=== PATIENT | female | born 1980 | race Hispanic/Latino ===

== ENCOUNTER → 2018-01-22 | Outpatient (CLI) | payer OTHER ==
[~2018-01-22] MED LIST: DIATRIZOATE MEGL/DIATRIZOA SOD 30 ML BTL PO ONE; IBUPROFEN400 MG PO; IOPAMIDOL 370 MG/ML 200 ML INFUS..BTL INJ ONE; SODIUM CHLORIDE 0.9% 50ML 50 ML ONE
--- NOTE | 2018-01-22 11:25 | Diagnostic Imaging Report ---
PROCEDURE: CT ABDOMEN AND PELVIS WITH CONTRAST TECHNIQUE: The abdomen and pelvis were scanned utilizing a multidetector helical scanner from the diaphragm to the lesser trochanter after the IV administration of 100 cc of Isovue 370 and the oral administration of Gastrografin. Coronal and sagittal multiplanar reformations were obtained. COMPARISON: None. INDICATIONS: HERNIA FINDINGS: LOWER THORAX: Normal. HEPATOBILIARY: No focal hepatic lesion or intrahepatic biliary ductal dilatation. The gallbladder has been removed. SPLEEN: No splenomegaly. Small splenule in the hilum. PANCREAS: No focal masses or ductal dilatation. ADRENALS: No adrenal nodules. KIDNEYS/URETERS: No hydronephrosis, stones, or solid mass lesions. PELVIC ORGANS/BLADDER: Urinary bladder is incompletely distended. The uterus is not identified and has presumably been removed. Left ovarian corpus luteum cyst. No right adnexal mass. PERITONEUM / RETROPERITONEUM: No ascites. No pneumoperitoneum. LYMPH NODES: No pelvic sidewall, retroperitoneal, or mesenteric lymphadenopathy. VESSELS: The abdominal aorta, major branch vessels, and iliac arterial systems are well visualized and patent, without aneurysmal dilatation. GI TRACT: The large bowel shows no distention or wall thickening. Gas and fecal material are noted throughout. The appendix is not definitively identified and may have been removed. No right lower quadrant inflammatory change. No small bowel dilatation to suggest obstruction. BONES AND SOFT TISSUES: Postsurgical changes of the anterior abdominal wall with mild rectus diastases. Recurrent umbilical hernia sac measures 3.5 cm transverse by 2.9 cm AP by 3.4 cm craniocaudal and contains inflamed omental fat. No additional focal soft tissue abnormalities. No osseous destructive lesions. Bone islands in the left femoral head and left hemipelvis. IMPRESSION: Postsurgical changes of the anterior abdominal wall with a recurrent 3.5 cm hernia in the region of the umbilicus, containing inflamed omental fat. No small bowel herniation or obstruction. Dictated by: Cristhian Barton M.D. on 01/22/2018 at 11:26 Electronically approved by: Cristhian Barton M.D. on 01/22/2018 at 11:26
== END ==
LOC: CT 09:23
PROVIDERS: ATTEND Surgery
DX: K43.2 Incisional hernia without obstruction or gangrene (principal)
CPT/HCPCS: 74177; Q9967

== ENCOUNTER 2018-03-08 05:39 | Inpatient (IN) | payer OTHER ==
[2018-02-26 11:08] LABS: BASOPHILS # (AUTO) 0.1 (0.0-0.1); BASOPHILS % 0.5 % (0.0-1.0); EOSINOPHILS # (AUTO) 0.1 (0.0-0.4); EOSINOPHILS % 1.3 % (0.0-6.0); HEMATOCRIT 39.9 % (34.2-44.1); HEMOGLOBIN 13.2 g/dL (12.0-16.0); LYMPHOCYTES # (AUTO) 2.8 (1.0-3.2); LYMPHOCYTES % 27.4 % (18.0-39.1); MEAN CORPUSCULAR HEMOGLOBIN 28.6 pg (28-32); MEAN CORPUSCULAR HGB CONC 33.1 g/dL (31-35); MEAN CORPUSCULAR VOLUME 86.4 fL (81-99); MONOCYTES # (AUTO) 0.5 (0.2-0.8); MONOCYTES % 4.7 % (4.4-11.3); NEUTROPHILS # (AUTO) 6.8 (2.1-6.9); NEUTROPHILS % 65.9 % (38.7-80.0); PLATELET COUNT 234 x10e3/uL (140-360); RED BLOOD COUNT 4.62 x10e6/uL (3.6-5.1)
[~2018-03-08] VITALS: Ht 157.5 cm; Wt 90.7 kg
[~2018-03-08 05:39] MED LIST changes: -DIATRIZOATE MEGL/DIATRIZOA SOD 30 ML BTL PO ONE; -IOPAMIDOL 370 MG/ML 200 ML INFUS..BTL INJ ONE; -SODIUM CHLORIDE 0.9% 50ML 50 ML ONE
--- OUTSIDE RECORDS SUMMARY | 2018-03-08 05:42 | XMS REPORT ---
Author Author [facility] Address Unknown Phone Unavailable Care Team Providers [employer] Name Role Phone DUDLEY MOON Unavailable Unavailable Problems This patient has no known problems. Allergies, Adverse Reactions, Alerts This patient has no known allergies or adverse reactions. Medications This patient has no known medications. Results Test Description Test Time Test Comments Text Results Atomic Results Result Comments CT ABDOMEN/PELVIS W [place] [address] Patient Name: DIEGO DA SILVA MR #: [id number] : 1980 Age/Sex: 37/F Req # : [id number] Adm Physician: Ordered by: DUDLEY MOON MD Report #: [id number] Location: CT Room/Bed: Procedure: 0420- 0011 CT/CT ABDOMEN/PELVIS W Exam Date: 01/22/18 Exam Time: 1040 REPORT STATUS: Signed PROCEDURE: CT ABDOMEN AND PELVIS WITH CONTRAST TECHNIQUE: The abdomen and pelvis were scanned utilizing a multidetector helical scanner from the diaphragm to the lesser trochanter after the IV administration of 100 cc of Isovue 370 and the oral administration of Gastrografin. Coronal and sagittal multiplanar reformations were obtained. COMPARISON: None. INDICATIONS: HERNIA FINDINGS: LOWER THORAX: Normal. HEPATOBILIARY: No focal hepatic lesion or intrahepatic biliary ductal dilatation. The gallbladder has been removed. SPLEEN: No splenomegaly. Small splenule in the hilum. PANCREAS: No focal masses or ductal dilatation. ADRENALS: No adrenal nodules. KIDNEYS/URETERS: No hydronephrosis, stones, or solid mass lesions. PELVIC ORGANS/BLADDER: Urinary bladder is incompletely distended. The uterus is not identified and has presumably been removed. Left ovarian corpus luteum cyst. No right adnexal mass. PERITONEUM / RETROPERITONEUM: No ascites. No pneumoperitoneum. LYMPH NODES: No pelvic sidewall, retroperitoneal , or mesenteric lymphadenopathy. VESSELS: The abdominal aorta, major branch vessels, and iliac arterial systems are well visualized and patent, without aneurysmal dilatation. GI TRACT: The large bowel shows no distention or wall thickening. Gas and fecal material are noted throughout. The appendix is not definitively identified and may have been removed. No right lower quadrant inflammatory change. No small bowel dilatation to suggest obstruction. BONES AND SOFT TISSUES: Postsurgical changes of the anterior abdominal wall with mild rectus diastases. Recurrent umbilical hernia sac measures 3.5 cm transverse by 2.9 cm AP by 3.4 cm craniocaudal and contains inflamed omental fat. No additional focal soft tissue abnormalities. No osseous destructive lesions. Bone islands in the left femoral head and left hemipelvis. IMPRESSION: Postsurgical changes of the anterior abdominal wall with a recurrent 3.5 cm hernia in the region of the umbilicus, containing inflamed omental fat. No small bowel herniation or obstruction. Dictated by: Caesar Root M.D. on 01/22/2018 at 11:26 Electronically approved by: Caesar Root M.D. on 01/22/2018 at 11 :26 Dictated By: CAESAR ROOT MD [id number] Transcribed By: JANETT on 01/22/18 1126 COPY TO: DUDLEY MOON MD
[2018-03-08] MEDS ORDERED: BUPIVACAINE 0.25%/EPI 30ML SDV INJ ONE (08:29)
[2018-03-08] MEDS ORDERED: ACETAMINOPHEN 1000 MG/100 ML IV PRN (11:15)
[2018-03-08] MEDS ORDERED: HYDROMORPHONE 1MG/1ML INJ IV PRN (11:15)
[2018-03-08] MEDS ORDERED: FENTANYL CITRATE/PF 100MCG/2 ML INJ ONE ×2 (11:31→18:41)
[2018-03-08 13:48] VITALS: BP 102/57
[2018-03-08] MEDS ORDERED: CEFAZOLIN SOD 1 GM/NS 50ML 50 ML IV SCH (14:00)
[2018-03-08 14:20] VITALS: BP 102/57
[2018-03-08] MEDS: PANTOPRAZOLE 40 MG 10ML VIAL IV SCH (14:30)
[2018-03-08] MEDS: DEXTROSE 5%/LACTATED RINGERS 1,000 ML IV SCH (14:30)
--- NOTE | 2018-03-08 14:31 | Operative Report ---
DATE OF PROCEDURE: March 08, 2018 PREOPERATIVE DIAGNOSIS: Multiple recurrent ventral hernia. POSTOPERATIVE DIAGNOSIS: Multiple recurrent ventral hernia. OPERATION PERFORMED: Repair of multiple recurrent ventral hernia with mesh. STAGE SETTINGS PAINTER: Elvira ECHEVERRIA. ANESTHESIA: General. COMPLICATIONS: None. ESTIMATED BLOOD LOSS: Minimal. DESCRIPTION OF PROCEDURE: With the patient lying in bed in the supine position under good general endotracheal anesthesia, the abdomen was prepped with Betadine solution and draped in the usual manner. A midline incision was made along the old upper abdominal scar and around the umbilicus, taken down through the subcutaneous tissue, and immediately multiple hernia sacs were encountered along the subumbilical, periumbilical and epigastric region. The fascia was then dissected all the way around, with normal fascia all the way around. The umbilicus was then detached from the hernia sac. The different hernia defects were then opened, and all of the adhesions and omentum were dissected and reduced back to the intra-abdominal cavity. A couple of the hernia sacs were joined together into one larger defect, and all of the adhesions were slowly and carefully taken down. The patient apparently had what appeared to be at least 2 different pieces of mesh that had been placed intraabdominally, and these were removed. Once this was done and the whole area was cleared off of any adhesions, a 12 x 15 piece of Physiomesh was then placed into the intraabdominal cavity and anchored in all 6 spots using number 1 Prolene, and then using the tacker, the rest of the mesh was anchored all the way around. Once this was done, this gave us a satisfactory repair. There was no tension on the fascia. The fascial defects were then closed with interrupted sutures of 0 Ethibond and further oversewn with a number 1 PDS. This gave us a satisfactory closure without any tension. The whole area was thoroughly irrigated. Perfect hemostasis was ascertained. The fascia was then infiltrated with 1/4 percent Marcaine solution. The umbilicus was then tacked back down to the midline fascia with 3-0 Vicryl. The subcutaneous tissue was approximated with 2-0 Vicryl, and the skin was closed with clips. A dressing was applied. The sponge, lap and needle count was correct. The patient tolerated the procedure well and returned to the recovery room in stable condition. Job#: [id number]
[2018-03-08] MEDS: HYDROCODONE/APAP 7.5MG-325MG 1 EA TAB PO PRN (14:45)
[2018-03-08] MEDS: HYDROMORPHONE 2MG/ML INJ IV PRN (15:16)
[2018-03-08] MEDS ORDERED: PROMETHAZINE 12.5MG/ NACL 0.9% 12.5 MG/50 ML BAG IV PRN (16:00)
[2018-03-08 16:28] VITALS: BP 130/59
[2018-03-08] MEDS: CEFAZOLIN SOD 1 GM VIAL IV SCH (16:52)
[2018-03-08] MEDS ORDERED: CEFAZOLIN SOD 1 GM VIAL ONE (17:48)
[2018-03-08] MEDS ORDERED: PROPOFOL IV EMULSION 10 MG/ML 20 ML VIAL ONE (17:48)
[2018-03-08] MEDS ORDERED: KETOROLAC TROMETHAMINE 30 MG/ML VIAL ONE (17:48)
[2018-03-08] MEDS ORDERED: SEVOFLURANE INHAL SOLN 250 ML PEN BTL ONE (17:48)
[2018-03-08] MEDS ORDERED: DEXAMETHASONE SOD PHOS INJ 4 MG/ML VIAL ONE (17:48)
[2018-03-08] MEDS ORDERED: LIDOCAINE HCL 2% LOCAL INJ 5 ML SDV VIAL INJ ONE (17:48)
[2018-03-08] MEDS ORDERED: ONDANSETRON HCL INJ 2 MG/ML VIAL ONE (17:48)
[2018-03-08] MEDS ORDERED: ROCURONIUM BROMIDE 10 MG/ML 5ML VIAL ONE (17:48)
[2018-03-08] MEDS ORDERED: ACETAMINOPHEN 1000 MG/100 ML IV ONE (17:48)
[2018-03-08] MEDS ORDERED: MIDAZOLAM HCL 2 MG/2 ML VIAL ONE (18:41)
[2018-03-08 20:00] VITALS: BP 95/54
[2018-03-08 20:08] VITALS: BP 95/54
[2018-03-09] VITALS (9 sets, daily range): BP systolic 99–111; BP diastolic 53–59
[2018-03-09] MEDS: HYDROMORPHONE 2MG/ML INJ IV PRN ×5 (00:20→20:58)
[2018-03-09] MEDS: CEFAZOLIN SOD 1 GM VIAL IV SCH (00:25)
[2018-03-09] MEDS: DEXTROSE 5%/LACTATED RINGERS 1,000 ML IV SCH ×3 (00:25→17:20)
[2018-03-09 05:51] LABS: BASOPHILS % 0.1 % (0.0-1.0); EOSINOPHILS % 0.1 % (0.0-6.0); HEMOGLOBIN 10.8 g/dL (12.0-16.0); LYMPHOCYTES # (AUTO) 2.3 (1.0-3.2); LYMPHOCYTES % 12.6 % (18.0-39.1); MEAN CORPUSCULAR HEMOGLOBIN 28.8 pg (28-32); MEAN CORPUSCULAR HGB CONC 32.7 g/dL (31-35); MONOCYTES # (AUTO) 0.8 (0.2-0.8); MONOCYTES % 4.5 % (4.4-11.3); NEUTROPHILS # (AUTO) 14.7 (2.1-6.9); NEUTROPHILS % 82.4 % (38.7-80.0); PLATELET COUNT 225 x10e3/uL (140-360); RED BLOOD COUNT 3.75 x10e6/uL (3.6-5.1); RED CELL DISTRIBUTION WIDTH 13.6 % (11.7-14.4)
[2018-03-09 06:09] LABS: ANION GAP 11.2 mmol/L (8-16); BLOOD UREA NITROGEN 7 mg/dL (7-26); BUN/CREATININE RATIO 10 (6-25); CARBON DIOXIDE 27 mmol/L (22-29); CHLORIDE 106 mmol/L (98-107); CREATININE, SERUM 0.71 mg/dL (0.57-1.11); EST GLOMERULAR FILTRATION RATE > 60 ML/MIN (60-); GLUCOSE 119 mg/dL (74-118); POTASSIUM 4.2 mmol/L (3.5-5.1); SODIUM 140 mmol/L (136-145)
[2018-03-09] MEDS: PANTOPRAZOLE 40 MG 10ML VIAL IV SCH (12:31)
[2018-03-09] MEDS: HYDROCODONE/APAP 7.5MG-325MG 1 EA TAB PO PRN (16:35)
[2018-03-10] VITALS (8 sets, daily range): BP systolic 101–135; BP diastolic 56–60
[2018-03-10] MEDS: HYDROMORPHONE 2MG/ML INJ IV PRN ×5 (02:50→22:14)
[2018-03-10] MEDS: PANTOPRAZOLE 40 MG 10ML VIAL IV SCH (11:10)
[2018-03-10] MEDS: HYDROCODONE/APAP 7.5MG-325MG 1 EA TAB PO PRN (11:49)
[2018-03-10] MEDS: DEXTROSE 5%/LACTATED RINGERS 1,000 ML IV SCH (16:15)
[2018-03-10] MEDS ORDERED: MAGNESIUM HYDROXIDE 30 ML UDC PO ONE (19:00)
[2018-03-10] MEDS: BISACODYL 10 MG SUPP PR SCH (21:56)
[2018-03-11] VITALS: BP 121/64
[2018-03-11 04:00] VITALS: BP 116/62
[2018-03-11] MEDS: DEXTROSE 5%/LACTATED RINGERS 1,000 ML IV SCH (05:02)
[2018-03-11 07:05] VITALS: BP 127/58
[2018-03-11 07:20] VITALS: BP 127/68
[2018-03-11] MEDS: BISACODYL 10 MG SUPP PR SCH (08:00)
[2018-03-11] MEDS: HYDROMORPHONE 2MG/ML INJ IV PRN ×2 (08:05→11:35)
[2018-03-11] MEDS: PANTOPRAZOLE 40 MG 10ML VIAL IV SCH (11:24)
[2018-03-11] MEDS ORDERED: HYDROMORPHONE 1MG/1ML INJ ONE (11:28)
[2018-03-11 12:00] VITALS: BP 113/60
[2018-03-11] MEDS ORDERED: HYDROMORPHONE 1MG/1ML INJ IV PRN (14:00)
[2018-03-11] MEDS ORDERED: HYDROCODONE/APAP 7.5MG-325MG 1 EA TAB PO PRN (14:00)
[2018-03-11 15:35] VITALS: BP 105/52
== END 2018-03-11 21:53 | disposition home or self-care (01) | DRG 355 ==
LOC: OR 05:39 → MED/SURG 12:35
PROVIDERS: ADMIT Surgery; ATTEND Surgery
PROC: 0WUF0JZ Supplement Abdominal Wall with Synthetic Substitute, Open Approach (ICD-10-PCS; principal; 2018-03-08 08:31)
DX: K43.2 Incisional hernia without obstruction or gangrene (principal); G47.33 Obstructive sleep apnea (adult) (pediatric); K21.9 Gastro-esophageal reflux disease without esophagitis
CPT/HCPCS: 36415; 80048; 82948; 85025; J0690; J1100; J1170; J1885; J2001; J2250; J2405; J2550; J7120